=== PATIENT | female | born 1955 | race Two or more races ===

== ENCOUNTER 2020-08-27 08:21 | Emergency (ER) | payer MEDICARE, MEDICAID ==
[~2020-08-27] VITALS: Ht 152.4 cm; Wt 90.9 kg
[2020-08-27] MEDS ORDERED: ONDANSETRON 2MG/ML, 2ML ONE (08:47)
[2020-08-27] MEDS ORDERED: MORPHINE SULFATE 4 MG/ML, 1ML ONE (08:47)
[2020-08-27] MEDS ORDERED: MORPHINE SULFATE 4 MG/ML, 1ML IVPush PRN (09:00)
[2020-08-27] MEDS ORDERED: ONDANSETRON 2MG/ML, 2ML IVPush ONE (09:00)
[2020-08-27 09:24] LABS: MICROSCOPIC INDICATED
[2020-08-27] MEDS ORDERED: HYDROmorphone 2 MG/ML, 1ML IVPush PRN (09:30)
[2020-08-27 09:32] LABS: ALANINE AMINOTRANSFERASE 29 U/L (12-78); ANION GAP 6 mmol/L (5-15); CALCIUM 9.2 mg/dL (8.5-10.1); CHLORIDE 107 mmol/L (98-107); CREATININE 0.66 mg/dL (0.55-1.02)
[2020-08-27 09:34] LABS: ALKALINE PHOSPHATASE 90 U/L (45-117); BILIRUBIN,TOTAL 0.7 mg/dL (0.2-1.0); TOTAL PROTEIN 7.5 g/dL (6.4-8.2)
[2020-08-27] MEDS ORDERED: HYDROmorphone 1 MG/ML, 1ML INJ ONE (09:49)
[2020-08-27 10:00] LABS: BASOPHILS % (AUTO) 1 % (0-1); EOSINOPHILS % (AUTO) 2 % (1-7); LYMPHOCYTES % (AUTO) 20 % (22-44); MEAN CORPUSCULAR HEMOGLOBIN 29.7 pg (27.0-34.8); MEAN CORPUSCULAR HGB CONC 33.9 g/dL (32.4-35.8); MEAN PLATELET VOLUME 7.4 fL (7.4-10.4); MONOCYTES % (AUTO) 7 % (2-9); NEUTROPHILS % (AUTO) 69 % (42-75); PLATELET COUNT 261 x10^3/uL (130-400); RED BLOOD COUNT 5.02 x10^6/uL (3.82-5.3); RED CELL DISTRIBUTION WIDTH 13.1 % (9.6-15.2)
[2020-08-27] MEDS ORDERED: SODIUM CHLORIDE FLUSH 10ML SYR IVF ONE (10:00)
[2020-08-27 10:03] LABS: MD NO
[2020-08-27] MEDS ORDERED: OMNIPAQUE 350 MG/ML, 100ML BOTTLE ONE (10:37)
[2020-08-27 11:22] VITALS: BP 126/77
== END 2020-08-27 11:39 | disposition home or self-care (01) ==
LOC: ED 10:48
DX: M54.6 Pain in thoracic spine (principal); R10.11 Right upper quadrant pain; R63.0 Anorexia; I10 Essential (primary) hypertension; R94.31 Abnormal electrocardiogram [ECG] [EKG]
CPT/HCPCS: 36415; 71045; 74177; 76700; 80053; 81001; 83690; 85025; 87086; 93005; 96374; 96375; 99285; J1170; J2405; Q9967